=== PATIENT | male | born 1945 | race Caucasian/White ===

== ENCOUNTER → 2020-04-05 | Outpatient (CLI) | payer MEDICARE | END | disposition home or self-care (01) | LOC: COVID19 10:25 | PROVIDERS: ATTEND Family Medicine | DX: U07.1 COVID-19 (principal) ==

== ENCOUNTER 2021-10-03 08:59 | Inpatient (IN) | payer MEDICARE ==
[~2021-10-03] VITALS: Ht 187.9 cm; Wt 60.3 kg
[2021-10-03 09:02] VITALS: BP 102/52
[2021-10-03 09:25] LABS: MEAN CELL VOLUME 89.5 fl (80.0-94.0); MEAN CORPUSCULAR HGB 31.6 pg (27.0-31.0); MEAN CORPUSCULAR HGB CONC 35.3 g/dl (33.0-37.0); MEAN PLATELET VOLUME 10.8 fl (9.6-12.3); PLATELET COUNT AUTOMATED 238 10*3/uL (130-400); RED BLOOD COUNT 5.03 10*6/uL (4.50-5.90); RED CELL DISTRI WIDTH 14.1 % (0-14.5); WHITE BLOOD COUNT 16.4 10*3/uL (4.8-10.8)
[2021-10-03 09:37] LABS: ACT PARTIAL THROMBO TIME 25.1 SECONDS (20.0-32.1); INTERNATIONAL NORM RATIO 1.1 (2.0-3.5)
[2021-10-03 09:40] LABS: ALKALINE PHOSPHATASE 105 U/L (45-117); BUN 9 mg/dl (7-24); CHLORIDE 99 mmol/L (98-107); CREATININE 1.38 mg/dL (0.70-1.30); LIPASE 76 U/L (73-393); POTASSIUM 2.6 mmol/L (3.5-5.1); SGOT/AST 44 IU/L (3-35); SGPT/ALT 32 U/L (12-78); SODIUM 138 mmol/L (136-145); TOTAL PROTEIN 6.2 gm/dL (6.4-8.2)
[2021-10-03 09:54] LABS: MANUAL DIFF REFLEX YES
[2021-10-03 09:58] LABS: TOTAL CELLS COUNTED 100 #CELLS
[2021-10-03 09:59] LABS: OVALOCYTES FEW; PLATELET SUFFICIENCY NORMAL (NORMAL); POLYCHROMASIA SLIGHT
[2021-10-03 11:00] VITALS: BP 104/52
[2021-10-03 12:23] LABS: BILIRUBIN Negative (Negative); BLOOD Negative (Negative); CLARITY Clear (Clear); COLOR Dark Yellow (Yellow); GLUCOSE Negative (Negative); KETONE Trace (Negative); LEUKO ESTERASE Trace (Negative); NITRITE Negative (Negative); SPECIFIC GRAVITY 1.015 (1.001-1.030)
[2021-10-03] MEDS ORDERED: BUDESONIDE-FO10.2 G1 INH (12:48)
[2021-10-03] MEDS ORDERED: VENLAFAXINE H37.5 M3 PO (12:48)
[2021-10-03] MEDS ORDERED: SIMVASTATIN80 MG PO (12:50)
[2021-10-03] MEDS ORDERED: SPIRIVA RESPIMAT4 GM INH (12:50)
[2021-10-03] MEDS ORDERED: PROVENTIL HFA6.7 GM INH (12:51)
[2021-10-03] MEDS ORDERED: VAZALORE81 MG PO (12:52)
[2021-10-03] MEDS ORDERED: MILLIPRED5 MG PO (12:52)
[2021-10-03] MEDS ORDERED: FAMOTIDINE40 MG PO (12:55)
[2021-10-03] MEDS ORDERED: GAS-X125 MG PO (12:56)
[2021-10-03] MEDS ORDERED: ONDANSETRON4 MG SL (12:56)
[2021-10-03 12:59] LABS: WBC 21-30 wbc/hpf (0-5)
[2021-10-03 13:00] LABS: BACTERIA 2+
[2021-10-03 13:10] VITALS: BP 102/50
[2021-10-03 16:14] VITALS: BP 121/73
[2021-10-03 20:00] VITALS: BP 128/83
[2021-10-03 20:04] LABS: ARTERIAL BLOOD GAS PH 7.576 (7.35-7.45); ARTERIAL BLOOD GAS PO2 107.8 (80-90)
[2021-10-03 21:58] LABS: BUN 10 mg/dl (7-24); CHLORIDE 96 mmol/L (98-107); CREATININE 1.09 mg/dL (0.70-1.30); SODIUM 135 mmol/L (136-145)
[2021-10-03 21:59] LABS: POTASSIUM 2.4 mmol/L (3.5-5.1)
[2021-10-04] VITALS: BP 119/74
[2021-10-04 07:53] LABS: HEMATOCRIT 40.8 % (42.0-52.0); MEAN CELL VOLUME 89.1 fl (80.0-94.0); MEAN CORPUSCULAR HGB 31.2 pg (27.0-31.0); MEAN PLATELET VOLUME 11.2 fl (9.6-12.3); PLATELET COUNT AUTOMATED 182 10*3/uL (130-400); RED BLOOD COUNT 4.58 10*6/uL (4.50-5.90); RED CELL DISTRI WIDTH 13.9 % (0-14.5); WHITE BLOOD COUNT 10.7 10*3/uL (4.8-10.8)
[2021-10-04 07:55] LABS: MANUAL DIFF REFLEX YES
[2021-10-04 08:00] VITALS: BP 127/91
[2021-10-04] MEDS ORDERED: VITAMIN B125000 MCG PO (08:03)
[2021-10-04] MEDS ORDERED: SIMVASTATIN5 MG PO (08:05)
[2021-10-04] MEDS ORDERED: IMODIUM A-D2 M2 PO (08:07)
[2021-10-04 08:14] LABS: ALKALINE PHOSPHATASE 89 U/L (45-117); BUN 10 mg/dl (7-24); CHLORIDE 100 mmol/L (98-107); CHOLESTEROL 121 mg/dL (<200); CREATININE 0.97 mg/dL (0.70-1.30); LDL CHOLESTEROL 68 mg/dL (9-159); POTASSIUM 2.5 mmol/L (3.5-5.1); SGOT/AST 46 IU/L (3-35); SGPT/ALT 31 U/L (12-78); SODIUM 135 mmol/L (136-145); TOTAL PROTEIN 5.6 gm/dL (6.4-8.2); TRIGLYCERIDES 92 mg/dl (<150)
[2021-10-04 08:18] LABS: BURR CELLS FEW; PLATELET SUFFICIENCY NORMAL (NORMAL); POLYCHROMASIA SLIGHT; TOTAL CELLS COUNTED 100 #CELLS
[2021-10-04 08:19] LABS: CPK 220 U/L (39-308); FREE T4 1.48 ng/dl (0.76-1.46); OVALOCYTES FEW
[2021-10-04 09:25] LABS: FERRITIN 370.8 ng/mL (22.0-322.0); VITAMIN D, 25-HYDROXY 67.7 ng/mL (30-100)
[2021-10-04 12:00] VITALS: BP 130/69
[2021-10-04 16:00] VITALS: BP 135/78
[2021-10-04 20:00] VITALS: BP 147/83
[2021-10-05] VITALS: BP 140/74
[2021-10-05 08:00] VITALS: BP 148/86
[2021-10-05 08:08] LABS: BASO % 0.3 % (0.0-1.0); EOS % 0.5 % (1.0-4.0); HEMATOCRIT 39.1 % (42.0-52.0); LYMPH # 1.6 10*3/uL (1.3-4.4); MEAN CELL VOLUME 89.1 fl (80.0-94.0); MEAN CORPUSCULAR HGB CONC 34.8 g/dl (33.0-37.0); MEAN PLATELET VOLUME 11.2 fl (9.6-12.3); MONO # 1.3 10*3/uL (0.1-1.0); MONO % 16.5 % (3.0-9.0); NEUT # 4.7 10*3/uL (2.3-7.9); NEUT % 60.8 % (47.0-73.0); PLATELET COUNT AUTOMATED 183 10*3/uL (130-400); RED BLOOD COUNT 4.39 10*6/uL (4.50-5.90); RED CELL DISTRI WIDTH 13.8 % (0-14.5); WHITE BLOOD COUNT 7.8 10*3/uL (4.8-10.8)
[2021-10-05 08:19] LABS: BUN 10 mg/dl (7-24); CHLORIDE 106 mmol/L (98-107); CREATININE 0.68 mg/dL (0.70-1.30); POTASSIUM 2.9 mmol/L (3.5-5.1); SODIUM 141 mmol/L (136-145)
[2021-10-05 10:34] LABS: ABG BASE EXCESS 4.3 mmol/L (-2.0-2.0); ARTERIAL BLOOD GAS PH 7.499 (7.35-7.45); ARTERIAL BLOOD GAS PO2 119.4 (80-90)
[2021-10-05 12:00] VITALS: BP 118/75
[2021-10-05 16:00] VITALS: BP 110/72
[2021-10-05 20:00] VITALS: BP 140/60
[2021-10-06] VITALS (8 sets, daily range): BP systolic 98–144; BP diastolic 57–78
[2021-10-06 07:48] LABS: BASO % 0.1 % (0.0-1.0); EOS % 0.4 % (1.0-4.0); HEMATOCRIT 36.4 % (42.0-52.0); LYMPH % 26.7 % (27.0-41.0); MEAN CELL VOLUME 90.1 fl (80.0-94.0); MEAN CORPUSCULAR HGB 31.2 pg (27.0-31.0); MEAN CORPUSCULAR HGB CONC 34.6 g/dl (33.0-37.0); MEAN PLATELET VOLUME 11.3 fl (9.6-12.3); MONO # 1.1 10*3/uL (0.1-1.0); MONO % 14.6 % (3.0-9.0); NEUT # 4.3 10*3/uL (2.3-7.9); NEUT % 57.5 % (47.0-73.0); PLATELET COUNT AUTOMATED 167 10*3/uL (130-400); RED BLOOD COUNT 4.04 10*6/uL (4.50-5.90); RED CELL DISTRI WIDTH 13.9 % (0-14.5); WHITE BLOOD COUNT 7.5 10*3/uL (4.8-10.8)
[2021-10-06 07:59] LABS: BUN 14 mg/dl (7-24); CHLORIDE 110 mmol/L (98-107); POTASSIUM 2.8 mmol/L (3.5-5.1); SODIUM 144 mmol/L (136-145)
[2021-10-07] VITALS: BP 128/71
[2021-10-07 07:35] LABS: BUN 11 mg/dl (7-24); CHLORIDE 110 mmol/L (98-107); CREATININE 0.77 mg/dL (0.70-1.30); POTASSIUM 2.8 mmol/L (3.5-5.1); SODIUM 142 mmol/L (136-145)
[2021-10-07 08:00] VITALS: BP 136/74
[2021-10-07 12:00] VITALS: BP 120/88
[2021-10-07 16:00] VITALS: BP 133/81
[2021-10-07 20:00] VITALS: BP 154/78
[2021-10-08 06:02] LABS: BUN 10 mg/dl (7-24); CHLORIDE 113 mmol/L (98-107); SODIUM 145 mmol/L (136-145)
[2021-10-08 06:12] LABS: BASO % 0.2 % (0.0-1.0); EOS % 0.2 % (1.0-4.0); HEMATOCRIT 34.6 % (42.0-52.0); LYMPH % 24.8 % (27.0-41.0); MEAN CELL VOLUME 92.5 fl (80.0-94.0); MEAN CORPUSCULAR HGB 31.8 pg (27.0-31.0); MEAN CORPUSCULAR HGB CONC 34.4 g/dl (33.0-37.0); MEAN PLATELET VOLUME 11.8 fl (9.6-12.3); MONO % 11.6 % (3.0-9.0); NEUT % 61.9 % (47.0-73.0); PLATELET COUNT AUTOMATED 174 10*3/uL (130-400); RED BLOOD COUNT 3.74 10*6/uL (4.50-5.90); RED CELL DISTRI WIDTH 14.1 % (0-14.5); WHITE BLOOD COUNT 8.2 10*3/uL (4.8-10.8)
[2021-10-08 06:45] LABS: POTASSIUM 3.9 mmol/L (3.5-5.1)
[2021-10-08 08:00] VITALS: BP 161/78
[2021-10-08 12:00] VITALS: BP 145/66
[2021-10-08 16:00] VITALS: BP 131/71
[2021-10-08 20:00] VITALS: BP 140/95
[2021-10-09 06:25] LABS: BASO % 0.2 % (0.0-1.0); EOS # 0.1 10*3/uL (0.0-0.4); EOS % 0.6 % (1.0-4.0); HEMATOCRIT 34.8 % (42.0-52.0); LYMPH # 2.1 10*3/uL (1.3-4.4); LYMPH % 25.1 % (27.0-41.0); MEAN CELL VOLUME 93.5 fl (80.0-94.0); MEAN CORPUSCULAR HGB CONC 34.2 g/dl (33.0-37.0); MEAN PLATELET VOLUME 11.2 fl (9.6-12.3); MONO # 0.9 10*3/uL (0.1-1.0); MONO % 11.4 % (3.0-9.0); NEUT # 5.1 10*3/uL (2.3-7.9); NEUT % 61.1 % (47.0-73.0); PLATELET COUNT AUTOMATED 165 10*3/uL (130-400); RED BLOOD COUNT 3.72 10*6/uL (4.50-5.90); RED CELL DISTRI WIDTH 14.4 % (0-14.5); WHITE BLOOD COUNT 8.3 10*3/uL (4.8-10.8)
[2021-10-09 06:49] LABS: BUN 11 mg/dl (7-24); CHLORIDE 113 mmol/L (98-107); CREATININE 0.92 mg/dL (0.70-1.30); POTASSIUM 3.4 mmol/L (3.5-5.1); SODIUM 146 mmol/L (136-145)
[2021-10-09 08:00] VITALS: BP 144/70
[2021-10-09] MEDS ORDERED: XARELTO1 EACH PO (09:50)
[2021-10-09] MEDS ORDERED: METOPROLOL SUCC50 M1 PO (09:50)
[2021-10-09] MEDS ORDERED: DECADRON6 M1 PO (10:13)
== END 2021-10-09 13:59 | disposition home or self-care (01) | DRG 853 ==
LOC: ED 08:59 → 4E 11:45 → EDHOLD 11:45 → 4E 14:13
PROVIDERS: Emergency Medicine; Family Medicine; Internal Medicine; Registered Nurse; ADMIT Student in an Organized Health Care Education/Training Program; ATTEND Student in an Organized Health Care Education/Training Program
PROC: XW033E5 Introduction of Remdesivir Anti-infective into Peripheral Vein, Percutaneous Approach, New Technology Group 5 (ICD-10-PCS; 2021-10-03)
PROC: 0JQ10ZZ Repair Face Subcutaneous Tissue and Fascia, Open Approach (ICD-10-PCS; principal; 2021-10-06)
DX: A41.9 Sepsis, unspecified organism (principal); U07.1 COVID-19; J96.01 Acute respiratory failure with hypoxia; J12.82 Pneumonia due to coronavirus disease 2019; N17.0 Acute kidney failure with tubular necrosis; E44.0 Moderate protein-calorie malnutrition; I24.8 Other forms of acute ischemic heart disease; I48.11 Longstanding persistent atrial fibrillation; D84.821 Immunodeficiency due to drugs; R65.20 Severe sepsis without septic shock; R73.9 Hyperglycemia, unspecified; Z68.20 Body mass index [BMI] 20.0-20.9, adult; C61 Malignant neoplasm of prostate; J41.0 Simple chronic bronchitis; I08.1 Rheumatic disorders of both mitral and tricuspid valves; E87.6 Hypokalemia; J84.10 Pulmonary fibrosis, unspecified; S01.81XA Laceration without foreign body of other part of head, initial encounter; M06.9 Rheumatoid arthritis, unspecified; W19.XXXA Unspecified fall, initial encounter; E83.42 Hypomagnesemia; Y93.89 Activity, other specified; Y92.89 Other specified places as the place of occurrence of the external cause; Y99.8 Other external cause status; Z79.899 Other long term (current) drug therapy; Z88.1 Allergy status to other antibiotic agents; Z79.82 Long term (current) use of aspirin; Z79.51 Long term (current) use of inhaled steroids

== ENCOUNTER → 2021-12-23 | Outpatient (CLI) | payer MEDICARE ==
[~2021-12-23] MED LIST: BUDESONIDE-FO10.2 G1 INH; DECADRON6 M1 PO; FAMOTIDINE40 MG PO; GAS-X125 MG PO; IMODIUM A-D2 M2 PO; METOPROLOL SUCC50 M1 PO; MILLIPRED5 MG PO; ONDANSETRON4 MG SL; PROVENTIL HFA6.7 GM INH; SIMVASTATIN5 MG PO; SIMVASTATIN80 MG PO; SPIRIVA RESPIMAT4 GM INH; VAZALORE81 MG PO; VENLAFAXINE H37.5 M3 PO; VITAMIN B125000 MCG PO; XARELTO1 EACH PO
[2021-12-23 12:34] LABS: BUN 6 mg/dl (7-24); CHLORIDE 112 mmol/L (98-107); CREATININE 0.98 mg/dL (0.70-1.30); POTASSIUM 3.3 mmol/L (3.5-5.1); SODIUM 145 mmol/L (136-145)
== END | disposition home or self-care (01) ==
LOC: LAB 11:49
PROVIDERS: ATTEND Physician Assistant Medical
DX: E87.6 Hypokalemia (principal); E83.51 Hypocalcemia